=== PATIENT | female | born 1985 | race Caucasian/White ===

== ENCOUNTER 2020-09-26 01:56 | Day surgery (SDC) | payer OTHER, SELFPAY ==
[2020-09-19 10:41] VITALS: BMI 28.2
--- NOTE | 2020-09-25 13:17 | WPDANESEPPF ---
Anes - Initial Pre Proc Eval Procedure: Operation Date: 09/26/20 12:00 Proposed Procedures p Hysteroscopy, Dilation and Curettage, Novasure Ablation - Yanick Dick MD s Laparoscopic Bilateral Tubal Ligation with Fallopian Rings, Nexplanon Removal - Yanick Dick MD Date/Time: 09/25/20 13:17 Surgeon: Yanick Dick MD Pre Op Diagnosis: irregular bleeding, sterilization, nexplanon remov Patient Data Age: 35 Gender: F Height: 1.68 m Weight: 79.38 kg Allergies Allergy/AdvReac Type Severity Reaction Status Date / Time latex Allergy Mild Swelling Unverified 09/19/20 10:39 Penicillins Allergy Unknown RASH Unverified 09/19/20 10:39 Home Medications Medication Instructions Recorded Confirmed Type clonazepam 0.5 mg PO DAILY PRN 09/19/20 09/19/20 History fluoxetine 20 mg PO DAILY 09/19/20 09/19/20 History fluoxetine 40 mg PO DAILY 09/19/20 09/19/20 History linaclotide [Linzess] 290 mcg PO DAILY 09/19/20 09/19/20 History PMF Past Medical History Medical History (Updated 09/25/20 @ 13:18 by Yfn Russell MD) Anxiety Migraine Overweight (BMI 25.0-29.9) Social History Social History Smoking status: Current some day smoker Tobacco type: cigarettes Additional smoking assessment comments: OCCASIONAL SOCIAL SMOKER- UNABLE TO QUANIFY Anes - Eval Final PreProcedure Day of Procedure 09/25/20 13:17 Patient weight: overweight Heart: regular rate and rhythm Lungs: clear to auscultation and normal air movement Airway: Mallampati scale class II Neurological: alert and oriented Last oral intake: >/= 8 hours ASA classification: II Emergent: no Anesthetic plan: proceed Anesthesia type and monitoring: general ETT Informed Consent: The patient's anesthetic plan and its attendant risks and benefits were discussed with the patient/family/POA. Questions were solicited and answers provided to the satisfaction of the patient/family/POA.
[2020-09-26] VITALS (7 sets, daily range): BP systolic 110–124; BP diastolic 63–78; PULSE 62–89; RESP 14–24; TEMP 36.1–36.5; O2SAT 95–100
[2020-09-26] MEDS: ACETAMINOPHEN 500 MG TABLET 1000 MG PO (10:17)
[2020-09-26] MEDS: LACTATED RINGERS 1,000 ML 30 ML IV CONT ×2 (10:21→13:32)
--- NOTE | 2020-09-26 10:27 | WPDANESEPPF ---
Anes - Initial Pre Proc Eval Procedure: Operation Date: 09/26/20 12:00 Proposed Procedures p Hysteroscopy, Dilation and Curettage, Novasure Ablation - Yanick Dick MD s Laparoscopic Bilateral Tubal Ligation with Fallopian Rings, Nexplanon Removal - Yanick Dick MD Date/Time: 09/26/20 10:27 Surgeon: Yanick Dick MD Pre Op Diagnosis: irregular bleeding, sterilization, nexplanon remov Patient Data Age: 35 Gender: F Height: 1.68 m Weight: 79.38 kg Allergies Allergy/AdvReac Type Severity Reaction Status Date / Time latex Allergy Mild Other Unverified 09/26/20 10:13 Penicillins AdvReac Mild RASH/SEVERE Unverified 09/26/20 10:13 HEADACHE Home Medications Medication Instructions Recorded Confirmed Type clonazepam 0.5 mg PO DAILY PRN 09/19/20 09/26/20 History fluoxetine 20 mg PO DAILY 09/19/20 09/26/20 History fluoxetine 40 mg PO DAILY 09/19/20 09/26/20 History linaclotide [Linzess] 290 mcg PO DAILY 09/19/20 09/26/20 History Patient hx anesthesia problems: none Family hx anesthesia problems: none [facility] Past Medical History Medical History (Updated 09/25/20 @ 13:18 by Yfn Russell MD) Anxiety Migraine Overweight (BMI 25.0-29.9) Social History Social History Smoking status: Current some day smoker Tobacco type: cigarettes Additional smoking assessment comments: OCCASIONAL SOCIAL SMOKER- UNABLE TO QUANIFY Anes - Eval Final PreProcedure Day of Procedure 09/26/20 10:27 Patient weight: overweight Heart: regular rate and rhythm Lungs: clear to auscultation and normal air movement Airway: Mallampati scale class II Neurological: alert and oriented Last oral intake: >/= 8 hours ASA classification: II Emergent: no Anesthetic plan: proceed Anesthesia type and monitoring: general ETT and standard monitoring Informed Consent: The patient's anesthetic plan and its attendant risks and benefits were discussed with the patient/family/POA. Questions were solicited and answers provided to the satisfaction of the patient/family/POA.
[2020-09-26] MEDS: KETOROLAC 15 MG/ML VIAL (*BKC) IV PUSH (10:30)
--- NOTE | 2020-09-26 11:41 | SUR.PREOP ---
1135-PT AWARE AND STATES SHE WILL NOTIFY THAT PREVIOUS SURGEON DELAYS DR. PEDRAZA UNTIL 1230.
--- NOTE | 2020-09-26 11:52 | PM.IMHP ---
H&P: HPI History of Present Illness Date/Time: 09/26/20 11:52 Chief complaint: irregular bleeding, sterilization, nexplanon remov Narrative: 35 y/o with a Nexplanon lisa in place. She has irregular, heavy episodes of vaginal bleeding. She is interested in permanent contraception and surgical management of her bleeding. Review of Systems Review of Systems: All systems reviewed & are unremarkable except as noted in HPI and below PMFSH Past Medical History Medical History Anxiety IBS (irritable colon syndrome) Migraine Overweight (BMI 25.0-29.9) Social History Social History Smoking status: Current some day smoker Tobacco type: cigarettes Additional smoking assessment comments: OCCASIONAL SOCIAL SMOKER- UNABLE TO QUANIFY Meds Home Medications and Allergies Home Medications Medication Instructions Recorded Confirmed Type clonazepam 0.5 mg PO DAILY PRN 09/19/20 09/26/20 History fluoxetine 20 mg PO DAILY 09/19/20 09/26/20 History fluoxetine 40 mg PO DAILY 09/19/20 09/26/20 History linaclotide [Linzess] 290 mcg PO DAILY 09/19/20 09/26/20 History Allergies Allergy/AdvReac Type Severity Reaction Status Date / Time latex Allergy Mild Other Unverified 09/26/20 10:13 Penicillins AdvReac Mild RASH/SEVERE Unverified 09/26/20 10:13 HEADACHE Vital Signs Vital Signs - 24 hr 09/26/20 09:54 Temperature 36.5 C Pulse Rate 89 Respiratory Rate 20 Blood Pressure 115/78 Pulse Oximetry 99 Exam Const: Orientation/consciousness: patient oriented x3 Other: Well-developed, well-nourished female in no acute distress. Neck: Thyroid: thyroid normal Lymphatic: no lymphadenopathy noted (in neck, axilla or inguinal nodes) Resp: Effort & Inspection: normal respiratory effort Auscultation: clear to auscultation bilaterally Cardio: Rate: regular rate Rhythm: regular rhythm Heart sounds: S1 normal heart sound present and S2 normal heart sound present GI: Other: ABD: Soft, nontender, nondistended. No guarding or rebound tenderness. No hepatosplenomegaly. : General: Yes no CVA tenderness Other: External genitalia: normal female hair distribution, without lesion. Urethral meatus: no lesion, non prolapsed. Bladder: no mass, nontender Vagina: well-estrogenized, without lesion or discharge. No cystocele or rectocele. Cervix: no lesion or discharge. Uterus: small, anteverted, freely mobile, nontender Adnexa: no mass or tenderness. Anus/perineum: no lesions, nontender Back/Spine/Pelvis: Back: no CVA tenderness Skin: General skin exam: normal color and no rashes or lesions noted Neuro: General: patient oriented x3 Extrem: Other: Extremities: nontender with no edema Psych: Mental Status: mental status grossly normal Affect: normal affect Assessment and Plan Assessment and plan (1) Menometrorrhagia: Code(s): N92.1 - Excessive and frequent menstruation with irregular cycle Status: Acute Assessment and Plan: We reviewed medical vs. surgical management options. She understands there are temporary methods of contraception available to her. She understands that there are nonsurgical options as well as surgical options. She understands that tubal ligation will render her permanently sterile. She understands that there is a failure rate associated with tubal ligation, as well as an inherent ectopic gestation risk. Furthermore, she understands risks of surgery to include risks of anesthesia, risks of pain, infection, bleeding, blood products, thromboembolic phenomena and damage to adjacent structures such as bowel, bladder, ureters, blood vessels and nerves. She understands all these risks and elects to proceed with laparoscopic bilateral tubal ligation, hysteroscopy, D&C, endometrial ablation and removal of Nexplanon lisa. She has received the [employer] pamphlet on surgical steriliza
--- NOTE | 2020-09-26 12:05 | WPDHPUPDATE1 ---
History and Physical Update Update Date/Time: 09/26/20 12:05 History and Physical has been reviewed, including an updated exam of the patient. There are NO changes in the patient's condition. Risks, benefits, and alternatives have been discussed and questions answered. Patient agrees to proceed with procedure.
--- NOTE | 2020-09-26 13:34 | PM.PROC ---
Procedure Note - Detailed Date of procedure: 09/26/20 Pre-op diagnosis: irregular bleeding, sterilization, nexplanon remov Menometrorrhagia Desired sterility Post-op diagnosis: same Procedure performed: Laparoscopic bilateral tubal ligation using Falope rings Hysteroscopy Dilation and sharp curettage Endometrial ablation Removal of Nexplanon contraceptive lisa Description of procedure: The patient was taken to the operating room where general endotracheal anesthesia was administered. She was prepared and draped in the usual sterile fashion in dorsal lithotomy position. The bladder was drained with a red rubber catheter. A sterile speculum was placed into the vagina. The anterior lip of the cervix was grasped with a single-tooth tenaculum. The acorn uterine manipulator was placed. The speculum was withdrawn. Gloves were changed and attention was turned the abdomen. An infraumbilical skin incision was made with a scalpel. The abdomen was tented and a 5mm bladeless trocar was advanced under direct laparoscopic visualization. Pneumoperitoneum was administered using carbon dioxide gas. A survey of the pelvis and abdomen revealed the findings noted above. A second skin incision was made in the midline above the symphysis pubis and an 8mm bladeless trocar was advanced under direct laparoscopic visualization. The fallopian tube on the right side was followed out to the fimbriated end for identification. It was then grasped in the midportion with the Falope ring applicator. The Falope ring was tented applied. A good loop of tube was noted to be distal to the ring. Hemostasis was excellent. The device was reloaded and the contralateral tube was similarly identified and ligated. An excellent application was noted here as well. A total of 3mL of 1% lidocaine was infiltrated into the serosa of the proximal tubes for postoperative anesthesia. The ports were withdrawn. The gas was allowed to escape. The skin incisions were reapproximated using interrupted subcuticular sutures of 4 0 Vicryl. Dermaflex was applied externally. Attention was redirected to the vagina, where the acorn uterine manipulator was withdrawn. Ten mL of 1% lidocaine was administered in a paracervical block. The cervix was then gently dilated using Hegar dilators until an 8 mm dilator could be passed. Hysteroscopy was performed using sterile saline as a distention medium. Findings are as noted above. Sharp curettage was then performed, and endometrial curettings were collected on a Telfa pad and passed off to be sent to pathology. Finally, the the Novasure device was advanced and endometrial ablation commenced without difficulty. The device was withdrawn and a second look was taken using the hysteroscope. Excellent coverage of the endometrial cavity was noted. The tenaculum was removed. Hemostasis was excellent. Finally, the Nexplanon lisa was palpated in the expected location in the left arm. The skin was marked and prepped with betadine and infiltrated with 2 mL of 1% lidocaine. A stab incision was made with the #11 scalpel. The curved hemostat was used to grasp the Nexplanon lisa. It was easily removed, intact, and discarded. Steri strips and a pressure dressing were applied. Sponge, lap, needle and instrument counts were correct. The patient was awakened and taken to the recovery room in stable condition. I was present and scrubbed through the entire procedure. Implants: Falope rings x 2 Anesthesia: GETA and local (1% lidocaine) Surgeon: Yanick Dick MD Estimated blood loss (mL): 10 Drains: No Packing: No Pathology: yes (endometrial curettings) Complications: None Condition: stable Disposition: PACU Findings: Normal-appearing right upper quadrant anatomy, vermiform appendix, ovaries, Fallopian tubes, bilateral round and uterosacral ligaments, anterior and posterior cul-de-sac. Small myoma seen on the serosal surface of the uterine fundus. On hysteroscopy, the endomet
[2020-09-26] MEDS: LIDOCAINE HCL 1% LOCAL INJ 2 ML AMPUL 50 ML INFILTRATE (13:37)
[2020-09-26] MEDS: fentaNYL CITRATE INJ (*CRX) 100 MCG/2 ML VIAL 25 MCG IV PUSH ×4 (13:49→14:15)
--- NOTE | 2020-09-26 13:50 | SUR.PHASEI ---
1345 - dr. ortiz at bedside talking with pt
== END 2020-09-26 15:15 | disposition home or self-care (01) ==
PROVIDERS: PCP Nurse Practitioner Family; Visit Provider Obstetrics & Gynecology
PROC: 0U5B8ZZ Destruction of Endometrium, Via Natural or Artificial Opening Endoscopic (ICD-10-PCS; CPT 58563; principal; 2020-09-26 12:00)
PROC: (CPT 58671; 2020-09-26 12:00)
DX: N92.1 Excessive and frequent menstruation with irregular cycle (principal); Z30.2 Encounter for sterilization; Z30.49 Encounter for surveillance of other contraceptives; D25.9 Leiomyoma of uterus, unspecified; N85.8 Other specified noninflammatory disorders of uterus; F41.9 Anxiety disorder, unspecified; Z72.0 Tobacco use; K58.9 Irritable bowel syndrome, unspecified
CPT/HCPCS: 58671; 58563; 11982; 88305; A4264; A9270; J1100; J1885; J2250; J2405; J2704; J2710; J3010; J7030; J7120

== ENCOUNTER → 2021-03-11 01:21 | Outpatient (CLI) | payer OTHER, SELFPAY ==
[2021-03-11 19:15] LABS: SARS-CoV-2 RNA PCR Negative
== END ==
PROVIDERS: PCP Nurse Practitioner Family; Visit Provider Surgery Plastic and Reconstructive Surgery
DX: Z01.812 Encounter for preprocedural laboratory examination (principal); Z20.822 Contact with and (suspected) exposure to COVID-19
CPT/HCPCS: C9803; U0003; U0005

== ENCOUNTER 2021-03-14 01:04 | Day surgery (SDC) | payer OTHER, SELFPAY ==
[2021-03-05 10:40] VITALS: BMI 29.4
[2021-03-14 10:51] VITALS: BP 99/75; PULSE 73; RESP 18; TEMP 37.2; O2SAT 98
[2021-03-14] MEDS: LACTATED RINGERS 1,000 ML 30 ML IV CONT (11:10)
[2021-03-14] MEDS: SCOPOLAMINE 1.5 MG PATCH TRANSDERM (11:14)
--- NOTE | 2021-03-14 11:40 | WPDANESEPPF ---
Anes - Initial Pre Proc Eval Procedure: Operation Date: 03/14/21 13:30 Proposed Procedures p Bilateral Augmentation Mammoplasty - Todd Moser MD Date/Time: 03/14/21 11:40 Surgeon: Todd Moser MD Pre Op Diagnosis: micromastia Patient Data Age: 35 Gender: F Height: 1.69 m Weight: 79.4 kg Last Vital Signs Temp 37.2 C 03/14/21 10:51 Pulse 73 03/14/21 10:51 Resp 18 03/14/21 10:51 BP 99/75 L 03/14/21 10:51 Pulse Ox 98 03/14/21 10:51 Allergies Allergy/AdvReac Type Severity Reaction Status Date / Time latex Allergy Severe Other Verified 03/14/21 11:24 Penicillins Allergy Severe RASH/SEVERE Verified 03/14/21 11:24 HEADACHE marijuana Allergy Intermediate Swelling Verified 03/14/21 10:56 Home Medications Medication Instructions Recorded Confirmed Type clonazepam 0.5 mg PO DAILY PRN 09/19/20 03/14/21 History linaclotide [Linzess] 290 mcg PO DAILY 09/19/20 03/14/21 History melatonin 10 mg PO HS PRN 03/05/21 03/14/21 History trazodone 50 mg PO HS PRN 03/05/21 03/14/21 History carisoprodol 350 mg tablet 350 mg PO TID PRN #21 tablet 03/06/21 03/14/21 Rx ondansetron HCl 4 mg tablet 4 mg PO Q8H #21 tablet 03/06/21 03/14/21 Rx oxycodone-acetaminophen 5 mg-325 1 tablet PO Q6H PRN #15 tablet 03/06/21 03/14/21 Rx mg tablet Patient hx anesthesia problems: none Family hx anesthesia problems: none PMFSH Past Medical History Medical History Anxiety IBS (irritable colon syndrome) Migraine Overweight (BMI 25.0-29.9) Surgical History Surgical History H/O tubal ligation Family History Family History Mother Diabetes mellitus Father Diabetes mellitus Social History Social History Smoking status: Current some day smoker Tobacco type: cigarettes Additional smoking assessment comments: SOCIALLY - A PACK EVERY 2 MONTHS AT MOST Alcohol intake: current Alcohol use details: SOCIALLY - RARE Substance use: never Substance use type: does not use Living arrangements: with family Spiritual care concerns: No Anes - Eval Final PreProcedure Day of Procedure 03/14/21 11:40 Patient weight: overweight Heart: regular rate and rhythm Lungs: clear to auscultation and normal air movement Airway: Mallampati scale class II Neurological: alert and oriented Last oral intake: >/= 8 hours ASA classification: II Emergent: no Anesthetic plan: proceed Anesthesia type and monitoring: general LMA Informed Consent: The patient's anesthetic plan and its attendant risks and benefits were discussed with the patient/family/POA. Questions were solicited and answers provided to the satisfaction of the patient/family/POA.
--- NOTE | 2021-03-14 12:04 | WPDHPUPDATE1 ---
History and Physical Update Update Date/Time: 03/14/21 12:04 History and Physical has been reviewed, including an updated exam of the patient. There are NO changes in the patient's condition. Risks, benefits, and alternatives have been discussed and questions answered. Patient agrees to proceed with procedure.
--- NOTE | 2021-03-14 12:21 | P.OP_ITS ---
Procedure Note - Detailed Date of procedure: 03/14/21 Pre-op diagnosis: micromastia Post-op diagnosis: same Procedure performed: Bilateral augmentation mammaplasty Description of procedure: She is here today for bilateral breast augmentation. Previously and again today the risks, benefits, alternatives were discussed in extensive detail. I wanted her to be very realistic about the risks involved as well as expectations. We discussed aftercare and what to monitor for. Made sure answered all of her questions to her satisfaction today and consent was obtained. Marked in the preoperative holding area with their verification. The patient was taken to the operating room placed supine on the operating table. Anesthesia was provided by anesthesiology. A surgical time-out was taken. We cleansed the skin and 1% lidocaine and 0.25% Marcaine with epinephrine was used anesthetize as a field block. She was prepped and draped in a standard sterile fashion. Tegaderm nipple Fernandez were placed. A 15 blade used to make an incision along the inframammary fold. Dissection was continued at 45 degree angle until the chest wall as identified. Elevated in a dual plane fashion as outlined below. I incised the pectoralis major along its inferior border and completely released the inferior border leaving the medial border intact. I created a subpectoral pocket in the appropriate dimensions based on our preoperative planning for the implant. I then copiously irrigated with saline solution and verified a strict hemostasis. Next the use a triple antibiotic and Betadine containing solution to irrigate the pocket. I washed my gloves with the triple antibiotic and Betadine solution. We washed the implant immediately upon opening it with this solution and only opened it when we needed it. I used implant funnel and no-touch tam hnique. The implant was introduced into the pocket using the funnel. Having verified positioning of the implant this was closed using 2-0 Vicryl followed by 3-0 Monocryl in a running subcuticular 4-0 Monocryl followed by tissue glue. Fluffs and surgical bra were placed. Patient was awoke and taken to PACU without difficulty. All instrument sponge counts were correct at the end of the case. Anesthesia: GLMA Surgeon: Todd Moser MD Estimated blood loss (mL): 10 Drains: No Packing: No Pathology: none sent Complications: No immediate complications Condition: stable Disposition: PACU Findings: Bilateral Augmentation Mammaplasty Senthil Inspira Soft Touch 560cc Right: Dual plane 1. REF# SSF-560 SN [id number] Left: Dual plane 3. REF# [id number] SN [id number]
[2021-03-14] MEDS: ceFAZolin 2 GM/D5W 50 ML 2 GM/50 ML BAG IVPB (12:36)
[2021-03-14] MEDS: LIDO 1%/EPINEPHRINE 1:100,000 50 ML VIAL INFILTRATE (13:22)
[2021-03-14] MEDS: BUPIVACAINE HCL 0.25% PF 30 ML VIAL INFILTRATE (13:25)
[2021-03-14 13:50] VITALS: BP 132/81; PULSE 89; RESP 18; TEMP 36.1; O2SAT 99
[2021-03-14] MEDS: fentaNYL CITRATE INJ (*CRX) 100 MCG/2 ML VIAL 25 MCG IV PUSH ×3 (13:56→14:08)
[2021-03-14 14:05] VITALS: BP 118/81; PULSE 77; RESP 12; O2SAT 98
[2021-03-14 14:20] VITALS: BP 116/74; PULSE 71; RESP 20; O2SAT 98
[2021-03-14 14:35] VITALS: BP 109/64; PULSE 64; RESP 18
[2021-03-14] MEDS: oxyCODONE HCL (*CRX) 5 MG TAB IR PO (14:48)
[2021-03-14 15:05] VITALS: BP 111/78; PULSE 62; RESP 18
== END 2021-03-14 15:21 | disposition home or self-care (01) ==
PROVIDERS: PCP Nurse Practitioner Family; Visit Provider Surgery Plastic and Reconstructive Surgery
PROC: (CPT 19325; principal; 2021-03-14 13:30)
DX: Z41.1 Encounter for cosmetic surgery (principal); N64.82 Hypoplasia of breast; K58.9 Irritable bowel syndrome, unspecified; F41.9 Anxiety disorder, unspecified; Z79.899 Other long term (current) drug therapy; F17.210 Nicotine dependence, cigarettes, uncomplicated
CPT/HCPCS: 19325; A9270; J0690; J1100; J1200; J1580; J2250; J2405; J2704; J3010; J7120

== ENCOUNTER 2022-11-27 08:49 | Outpatient (CLI) | payer OTHER, SELFPAY | END 2022-11-27 08:50 | disposition home or self-care (01) | LOC: ANHSURGERY 09:25 | PROVIDERS: PCP Nurse Practitioner Family; Visit Provider Obstetrics & Gynecology | DX: N94.6 Dysmenorrhea, unspecified (principal); Z01.818 Encounter for other preprocedural examination | CPT/HCPCS: 36415; 86850; 86900; 86901 ==

== ENCOUNTER 2022-12-03 14:47 | Observation (INO) | payer OTHER, SELFPAY ==
[2022-11-25 11:00] VITALS: BMI 27.1
--- NOTE | 2022-11-25 11:04 | PC.NURSE ---
Report to the Outpatient Waiting Room, entrance under the green pavilion located off [facility], at time 11:00 on date 12/03/22. Planned Procedure Time: 1:00. Time changes happen often and if your time is changed the preop area will call you the afternoon before. - You and your visitor will be asked to self-screen and do not enter if you have any COVID symptoms. - Only one visitor is requested with a max of two and NO children visitors are allowed at this time. - The patient visitor may be requested to leave or wait in car when not with patient due to distancing restrictions. - A mask is optional within the hospital. Patients may have clear liquids (water, carbonated beverages, clear teas, apple juice) until 3 hours prior to surgery (10:00) with a maximum of 20 ounces. - No food from midnight until time of surgery Take the following medications with a SIP of water the morning of surgery: DESVENLAFAXINE, CLONAZEPAM IF NEEDED Medications to discontinue per physician: N/A Date to take last dose: N/A Please no make-up, nail sami, hairspray, perfume, deodorant, or body powder the day of surgery. No jewelry (including any body piercings) or valuables the day of surgery, leave them at home. Please take a shower or bath the night before, or the morning of, surgery with an antibacterial soap. Wear comfortable, loose fitting clothing. - Jewelry must be removed prior to entering the operating room. Rings and piercings that are not removed may be cut off. - The hospital will not accept responsibility for valuables. - Please leave all valuables, including medications, at home the day of surgery. If you are going home after surgery, a licensed race car driver must drive you home. - NO public transportation without another adult if you receive anesthesia. - We recommend that an adult stay with you for 24 hours following discharge. - We also recommend that you do not drive, make important decision, drink alcoholic beverages, or take any drugs that were not prescribed by your health care provider for at least 24 hours after your discharge time. Follow any additional instructions given to you from your surgeon. If you or anyone in your household have experienced Covid symptoms in the past week, please notify your surgeon or the nurse liaison at the phone number below for possible testing. Telephone instructions given to COSMO JULIEN and asked if any additional questions and then verbalized understanding. Patient advised to call surgeon office or pre surgery nurse liaison [phone] if any additional questions.
[2022-12-03] VITALS (8 sets, daily range): BP systolic 101–133; BP diastolic 61–91; PULSE 70–91; RESP 14–20; TEMP 36.4–36.8; O2SAT 96–100
[2022-12-03] MEDS: ACETAMINOPHEN 500 MG TABLET 1000 MG PO (10:22)
[2022-12-03] MEDS: LACTATED RINGERS 1,000 ML 30 ML IV CONT ×2 (10:30→13:28)
--- NOTE | 2022-12-03 10:33 | PM.IMHP ---
H&P: HPI History of Present Illness Date/Time: 12/03/22 10:33 Chief Complaint: Bleeding Narrative: 37 y/o who has had a tubal ligation and an endometrial ablation. She initially had a good response. However, she began to have irregular bleeding that is difficult to predict, as well as intermittent pain. She is interested in definitive management with hysterectomy. Review of Systems Review of Systems: All systems reviewed & are unremarkable except as noted in HPI and below PMFSH Past Medical History Medical History Anxiety IBS (irritable colon syndrome) Migraine Overweight (BMI 25.0-29.9) Surgical History Surgical History H/O tubal ligation History of breast augmentation History of endometrial ablation History of loop electrical excision procedure (LEEP) Family History Family History Mother Diabetes mellitus Father Diabetes mellitus Social History Social History Smoking status: Current some day smoker Tobacco type: cigarettes Additional smoking assessment comments: SOCIAL Alcohol intake: never Alcohol use details: SOCIALLY - RARE Substance use: never Substance use type: does not use Living arrangements: with family Spiritual care concerns: No Meds Home Medications and Allergies Home Medications Medication Instructions Recorded Confirmed Type clonazepam 0.5 mg tablet 0.5 mg PO DAILY PRN Anxiety 09/19/20 11/25/22 History linaclotide 290 mcg capsule 290 mcg PO DAILY 09/19/20 11/25/22 History (Linzess) montelukast 5 mg chewable tablet 5 mg PO DAILY #90 tabs 04/01/22 11/25/22 Rx (Singulair) desvenlafaxine succinate 50 mg 100 mg PO DAILY 11/25/22 11/25/22 History tablet,extended release 24 hr Allergies Allergy/AdvReac Type Severity Reaction Status Date / Time latex Allergy Severe Other Verified 12/03/22 10:33 Penicillins Allergy Severe RASH/SEVERE Verified 12/03/22 10:33 HEADACHE marijuana (cannabis) Allergy Intermediate Swelling Verified 12/03/22 10:33 [marijuana] Exam Const: Orientation/consciousness: patient oriented x3 Other: Well-developed, well-nourished female in no acute distress. Neck: Thyroid: thyroid normal Lymphatic: no lymphadenopathy noted (in neck, axilla or inguinal nodes) Resp: Effort & Inspection: normal respiratory effort Auscultation: clear to auscultation bilaterally Cardio: Rate: regular rate Rhythm: regular rhythm Heart sounds: S1 normal heart sound present and S2 normal heart sound present GI: Other: ABD: Soft, nontender, nondistended. No guarding or rebound tenderness. No hepatosplenomegaly. : General: Yes no CVA tenderness Other: External genitalia: normal female hair distribution, without lesion. Urethral meatus: no lesion, non prolapsed. Bladder: no mass, nontender Vagina: well-estrogenized, without lesion or discharge. No cystocele or rectocele. Cervix: no lesion or discharge. Uterus: small, anteverted, freely mobile, nontender Adnexa: no mass or tenderness. Anus/perineum: no lesions, nontender Back/Spine/Pelvis: Back: no CVA tenderness Skin: General skin exam: normal color and no rashes or lesions noted Neuro: General: patient oriented x3 Extrem: Other: Extremities: nontender with no edema Psych: Mental Status: mental status grossly normal Affect: normal affect Assessment and Plan Assessment and plan (1) Menometrorrhagia: Code(s): N92.1 - Excessive and frequent menstruation with irregular cycle Status: Acute Assessment and Plan: A: Menometrorrhagia with dysmenorrhea, refractory to conservative management. P: She desires definitive management with hysterectomy, as above. I have offered her a total vaginal hysterectomy with bilateral salpingec
[2022-12-03] MEDS: KETOROLAC 15 MG/ML VIAL (*BKC) IV PUSH (10:54)
--- NOTE | 2022-12-03 11:36 | P.PNAN_ITS ---
Anes - Initial Pre Proc Eval Procedure: Operation Date: 12/03/22 12:00 Proposed Procedures p Total Vaginal Hysterectomy with Bilateral Salpingectomy - Yanick Dick MD Date/Time: 12/03/22 11:36 Surgeon: Yanick Dick MD Pre Op Diagnosis: failed ablation, heavy bleeding, dysmenorrhea Patient Data Age: 37 Gender: F Height: 1.7 m Weight: 80.5 kg Last Vital Signs Temp 97.6 F 12/03/22 10:34 Pulse 86 12/03/22 10:34 Resp 16 12/03/22 10:34 BP 101/72 12/03/22 10:34 Pulse Ox 98 12/03/22 10:34 O2 Del Method Room Air 12/03/22 10:34 Allergies Allergy/AdvReac Type Severity Reaction Status Date / Time latex Allergy Severe Other Verified 12/03/22 10:33 Penicillins Allergy Severe RASH/SEVERE Verified 12/03/22 10:33 HEADACHE marijuana (cannabis) Allergy Intermediate Swelling Verified 12/03/22 10:33 [marijuana] Home Medications Medication Instructions Recorded Confirmed Type clonazepam 0.5 mg tablet 0.5 mg PO DAILY PRN Anxiety 09/19/20 12/03/22 History linaclotide 290 mcg capsule 290 mcg PO DAILY 09/19/20 12/03/22 History (Linzess) montelukast 5 mg chewable tablet 5 mg PO DAILY #90 tabs 04/01/22 11/25/22 Rx (Singulair) desvenlafaxine succinate 50 mg 100 mg PO DAILY 11/25/22 12/03/22 History tablet,extended release 24 hr Patient hx anesthesia problems: none Family hx anesthesia problems: none Results Review: All pre-operative results and documents have been reviewed as part of the pre- operative evaluation. [facility] Past Medical History Medical History Anxiety IBS (irritable colon syndrome) Migraine Overweight (BMI 25.0-29.9) Surgical History Surgical History H/O tubal ligation History of breast augmentation History of endometrial ablation History of loop electrical excision procedure (LEEP) Family History Family History Mother Diabetes mellitus Father Diabetes mellitus Social History Social History Smoking status: Current some day smoker Tobacco type: cigarettes Additional smoking assessment comments: SOCIAL Alcohol intake: never Alcohol use details: SOCIALLY - RARE Substance use: never Substance use type: does not use Living arrangements: with family Spiritual care concerns: No Anes - Eval Final PreProcedure Day of Procedure 12/03/22 11:36 Patient weight: normal Heart: regular rate and rhythm Lungs: clear to auscultation Airway: Mallampati scale class II Neurological: alert and oriented Last oral intake: >/= 8 hours ASA classification: II Emergent: no Anesthetic plan: proceed Anesthesia type and monitoring: general GIVS and standard monitoring Results Review: All pre-operative results and documents have been reviewed as part of the pre- operative evaluation. Informed Consent: The patient's anesthetic plan and its attendant risks and benefits were discussed with the patient/family/POA. Questions were solicited and answers provided to the satisfaction of the patient/family/POA.
--- NOTE | 2022-12-03 12:11 | WPDHPUPDATE1 ---
History and Physical Update Update Date/Time: 12/03/22 12:11 History and Physical has been reviewed, including an updated exam of the patient. There are NO changes in the patient's condition. Risks, benefits, and alternatives have been discussed and questions answered. Patient agrees to proceed with procedure.
[2022-12-03] MEDS: ceFAZolin 2 GM/D5W 50 ML 2 GM/50 ML BAG IVPB (12:18)
--- NOTE | 2022-12-03 13:34 | P.OP_ITS ---
Procedure Note - Detailed Date of Procedure 12/03/22 Pre-op Diagnosis Menometrorrhagia Dysmenorrhea Post-op Diagnosis Same Procedure Performed Total vaginal hysterectomy with bilateral salpingectomies Surgeon Yanick Dick MD Anesthesia General Findings Normal-appearing uterus, tubes and ovaries. Description of Procedure The patient was taken to the operating room where she was prepared and draped in the usual sterile fashion in the dorsal lithotomy position. The bladder was drained with red rubber catheter. A weighted speculum was placed posteriorly. A Helene retractor was used anteriorly. The cervix was grasped with a single- tooth tenaculum. Ten mL of sterile saline was infiltrated circumferentially around the cervix to aid in tissue plane dissection. The cervix was circumscribed using electrocautery. The peritoneal cavity was entered sharply posteriorly and a long weighted speculum was placed. The uterosacral and cardinal ligaments on both sides were then clamped, transected and suture ligated using 0 Vicryl. These were tagged for later identification. The bladder was dissected off the cervix and lower uterine segment and reflected away. The LigaSure device was then used to clamp, ligate and transect the broad ligaments bilaterally. Finally, the utero-ovarian ligament, round ligament and tube complexes on both sides were able to be clamped, transected and suture ligated using 0 Vicryl. The specimen was passed off to be sent to pathology. The bilateral fallopian tubes were then dissected, clamped, ligated and transected using the LigaSure device and passed off the field. The pedicles were inspected and found to be hemostatic. The vaginal cuff angles were then transfixed to the ipsilateral cardinal uterosacral ligaments for support. The vaginal cuff was reapproximated using 0 Vicryl in a running, locked fashion. Hemostasis was excellent. A Lujan catheter was placed. Vaginal packing soaked in Premarin cream was placed. Sponge, lap, needle and instrument counts were correct. The patient was awakened and taken to the recovery room in stable condition. I was present and scrubbed for the entire procedure. Implants None Estimated Blood Loss 30 Drains Yes (lujan) Packing Yes (vaginal) Pathology Yes (Uterus, cervix, bilateral Fallopian tubes) Complications None Condition Stable Disposition PACU
--- NOTE | 2022-12-03 13:36 | PM.DS ---
DS: Admitting Diagnosis Discharge Date 12/04/22 Admitting Diagnosis Menometrorrhagia Dysmenorrhea DS: Discharge Diagnosis Discharge Diagnosis (1) Dysmenorrhea: Code(s): N94.6 - Dysmenorrhea, unspecified Status: Acute (2) Menometrorrhagia: Code(s): N92.1 - Excessive and frequent menstruation with irregular cycle Status: Acute DS: Summary Hospital Course Hospital Course: Admitted to the hospital on the date of scheduled surgery. Please see op note. Postoperatively she did well and was able to go home on POD#1. Time Spent with Patient Time attestation: Total time spent providing and/or coordinating discharge services: DS: Data Data Completed and Pending Pending studies at discharge: Pending at discharge 12/03/22 12:56 Surgical [PTH] Routine Discharge Plan Discharge Attending physician on discharge: Yanick Dick Discharging Clinician: Yanick Dick Patient Disposition: Home, Self-Care Activity: may shower, may drive after 2 weeks and pelvic rest Diet: regular Discharge Instructions: Nothing in the vagina for 6 weeks. Call or return if temperature above 100.4? F, increased abdominal pain, increased vaginal bleeding or any new problems. Stand Alone Forms: General Discharge Instructions Follow-up/Referrals: Yanick Dick MD [Physician] - 2 Weeks Discharge Medications: New hydrocodone-acetaminophen 5-325 mg tablet 1 - 2 tablet PO Q6H PRN (Reason: pain) Qty: 30 0RF Continued montelukast [Singulair] 5 mg tablet,chewable 5 mg PO DAILY Qty: 90 0RF clonazepam 0.5 mg tablet 0.5 mg PO DAILY PRN (Reason: Anxiety) Linzess 290 mcg capsule 290 mcg PO DAILY desvenlafaxine succinate 50 mg tablet extended release 24 hr 100 mg PO DAILY Date of admission: 12/03/22 14:47 Primary Care Provider: Jatin,Luanne Admitting Provider: Yanick Dick Attending physician on admission: Yanick Dick Condition: Stable
[2022-12-03] MEDS: fentaNYL CITRATE INJ (*CRX) 100 MCG/2 ML VIAL 25 MCG IV PUSH ×8 (13:45→14:30)
--- NOTE | 2022-12-03 14:50 | PC.NURSE ---
This patient, Martha Falk, was received from PACU on 12/03/22 at 1450. Patient/family oriented to unit policies and routines.
[2022-12-03] MEDS: KETOROLAC 30 MG/ML VIAL (*BKC) IV PUSH ×2 (15:06→21:12)
[2022-12-03] MEDS: DEXTROSE 5%/0.45% SOD CHL 1,000 ML 125 ML IV CONT (15:09)
[2022-12-03] MEDS: HYDROcodone/acetaminophen (*CRX) 10-325 MG TABLET 1 TAB PO (17:07)
[2022-12-03] MEDS: MONTELUKAST SODIUM 5 MG TABLET PO (18:44)
[2022-12-03] MEDS: ENOXAPARIN 40 MG/0.4 ML SYRINGE SUB-Q (18:44)
[2022-12-03] MEDS: ONDANSETRON INJ 4 MG/2 ML VIAL IV PUSH (18:44)
[2022-12-04] MEDS: ONDANSETRON INJ 4 MG/2 ML VIAL IV PUSH (03:08)
[2022-12-04] MEDS: KETOROLAC 30 MG/ML VIAL (*BKC) IV PUSH (03:08)
[2022-12-04 03:20] VITALS: BP 101/66; PULSE 79; RESP 16; TEMP 37.1
[2022-12-04 03:56] LABS: Basophils Percent Auto 0.1 % (0.2-1.2); Hematocrit 33.7 % (37.0-47.0); Hemoglobin 11.6 g/dL (12.0-15.0); Immature Granulocyte Absolute 0.04 K/mm3 (0.00-0.031); Immature Granulocyte Percent A 0.4 % (0-0.5); Lymphocytes Absolute Auto 1.65 K/mm3 (0.9-3.2); Lymphocytes Percent Auto 14.9 % (18.3-44.2); Mean Corpuscular HGB Conc 34.4 g/dl (32-36); Mean Corpuscular Hemoglobin 30.9 pg (26-34); Mean Corpuscular Volume 89.6 fl (80-100); Mean Platelet Volume 9.9 fl (7.4-10.4); Monocytes Absolute Auto 0.7 K/mm3 (0.1-0.6); Monocytes Percent Auto 6.3 % (2.6-8.5); Neutrophils Absolute Auto 8.6 K/mm3 (1.3-6.7); Neutrophils Percent Auto 78.3 % (45.5-73.1); Platelet Count Result 282 k/mm3 (150-375); Red Blood Count 3.76 M/mm3 (4.2-5.4); Red Cell Distribution Width 11.9 % (11.5-14.5)
[2022-12-04 07:45] VITALS: BP 113/79; PULSE 86; RESP 16; TEMP 37.4; O2SAT 98
--- NOTE | 2022-12-04 07:52 | WPDANESPN ---
Anes - Prog Note Post-Op Date/Time: 12/04/22 07:52 Cardiovascular status: normal Respiratory status: normal Airway patency: baseline Mental status: baseline Post-Op hydration status: normal Vital Signs: Last Vital Signs Temp 37.1 C 12/04/22 03:20 Pulse 79 12/04/22 03:20 Resp 16 12/04/22 03:20 BP 101/66 12/04/22 03:20 Pulse Ox 96 12/03/22 15:00 O2 Del Method Room Air 12/03/22 14:45 O2 Flow Rate 6 12/03/22 13:55 Pain Score (VAS): 01/16 I/O: Intake & Output 12/03/22 12/03/22 12/04/22 15:59 23:59 07:59 Intake Total 400 1045 1000 Output Total 50 575 700 Balance 350 470 300 Laboratory Tests 12/04/22 03:39 12/04/22 03:39 WBC 11.0 H RBC 3.76 L Hgb 11.6 L Hct 33.7 L MCV 89.6 MCH 30.9 MCHC 34.4 RDW 11.9 Plt Count 282 MPV 9.9 Immature Gran % (Auto) 0.4 Neut % (Auto) 78.3 H Lymph % (Auto) 14.9 L [place] % (Auto) 6.3 Eos % (Auto) 0.0 Baso % (Auto) 0.1 L Lymph # (Auto) 1.65 [place] # (Auto) 0.7 H Eos # (Auto) 0.0 Baso # (Auto) 0.0 Abs Immat Gran (auto) 0.04 H Absolute Neuts (auto) 8.6 H Absolute Nucleated RBC 0.0 Nucleated RBC % 0.0 Post-procedural complaints: none Patient Feedback: Patient satisfied with anesthetic care. Other Findings: Patient states mild nausea last night, but is resolved this morning
[2022-12-04] MEDS: DOCUSATE SODIUM 100 MG CAPSULE PO (08:10)
--- NOTE | 2022-12-04 08:51 | PM.GYNPNOP ---
[employer] - A/P Assessment and plan (1) Dysmenorrhea: Code(s): N94.6 - Dysmenorrhea, unspecified Status: Acute Assessment and Plan: A: POD#1, doing well. P: Home to f/u 2 weeks in office. (2) Menometrorrhagia: Code(s): N92.1 - Excessive and frequent menstruation with irregular cycle Status: Acute Postoperative Procedures: Procedures Operation Date: 12/03/22 12:00 Actual Procedure Side Surgeon p Total Vaginal Hysterectomy with Bilateral Salpingectomy Not Applicable Yanick Dick MD Time Spent With Patient Time: Total time spent is greater than 50% in coordination of care (as documented) at patient's floor/unit and/or counseling patient: Time with patient: less than 15 minutes [employer]- PN:Subj Post-Op Subjective Date/time seen: 12/04/22 08:51 Interval history: Pain OK. Tolerating diet. Voiding. Would like to go home. Exam Narrative: AVSS I/O OK ABD soft, nontender. Incisions c/d/i. EXT nontender [employer] - PN: Obj Data Vital Signs Vital Signs: Vital Signs - 24 hr 12/03/22 10:34 12/03/22 13:28 12/03/22 13:40 Temperature 36.4 C 36.8 C Pulse Rate 86 80 91 Respiratory Rate 16 14 16 Blood Pressure 101/72 109/72 119/80 Pulse Oximetry 98 97 97 Oxygen Delivery Room Air Simple Face Mask Simple Face Mask Oxygen Flow Rate 10 6 12/03/22 13:55 12/03/22 14:10 12/03/22 14:45 Temperature Pulse Rate 88 74 70 Respiratory Rate 20 20 20 Blood Pressure 128/86 133/91 H 128/75 Pulse Oximetry 100 100 100 Oxygen Delivery Simple Face Mask Room Air Room Air Oxygen Flow Rate 6 12/03/22 15:00 12/03/22 18:55 12/04/22 03:20 Temperature 36.5 C 36.4 C 37.1 C Pulse Rate 79 70 79 Respiratory Rate 16 16 16 Blood Pressure 122/77 102/61 101/66 Pulse Oximetry 96 Oxygen Delivery Oxygen Flow Rate 12/04/22 07:45 Temperature 37.4 C Pulse Rate 86 Respiratory Rate 16 Blood Pressure 113/79 Pulse Oximetry 98 Oxygen Delivery Oxygen Flow Rate Intake/Output Intake/Output: Intake & Output 12/01/22 12/02/22 12/03/22 12/04/22 23:59 23:59 23:59 23:59 Intake Total 1445 1000 Output Total 625 700 Balance 820 300 Meds/Results Medications: Active Medications Generic Name Dose Route Start Last Admin Trade Name Freq PRN Reason Stop Dose Admin Hydrocodone Bitart/Acetaminophen 1 tab 12/03/22 14:47 Hydrocodone/Acetaminophen (*Crx) 5-325 Mg Tablet PO Q3H PRN Pain Rated 5 or Less Hydrocodone Bitart/Acetaminophen 1 tab 12/03/22 14:47 12/03/22 17:07 Hydrocodone/Acetaminophen (*Crx) 10-325 Mg Tablet PO 1 tab Q3H PRN Administration Pain Rated 6 or Greater Clonazepam 0.5 mg 12/03/22 14:47 Clonazepam (*Crx) 0.5 Mg Tablet PO DAILY PRN Anxiety Desvenlafaxine Succinate 100 mg 12/04/22 09:00 12/04/22 08:26 Desvenlafaxine Succinate 50 Mg Tab.Er.24h PO Not Given QAM [facility] Docusate Sodium 100 mg 12/03/22 17:00 12/04/22 08:10 Docusate Sodium 100 Mg Capsule PO 100 mg BID [facility] Administration Enoxaparin Sodium 40 mg 12/03/22 21:00 12/03/22 18:44 Enoxaparin 40 Mg/0.4 Ml Syringe SUB-Q 40 mg DAILY@2100 [facility] Administration Ibuprofen 600 mg 12/03/22 14:47 Ibuprofen 600 Mg Tablet PO Q6H PRN Cramping Ketorolac Tromethamine 30 mg 12/03/22 14:47 12/04/22 03:08 Ketorolac 30 Mg/Ml Vial (*Bkc) IV PUSH 12/08/22 14:46 30 mg Q6H PRN Administration Pain Rated 4-6 Linaclotide 290 mcg 12/04/22 06:30 12/04/22 08:26 Linaclotide 145 Mcg Capsule PO Not Given DAILY@0630 [facility] Montelukast Sodium 5 mg 12/03/22 18:00 12/03/22 18:44 Montelukast Sodium 5 Mg Tablet PO 5 mg QPM [facility] Administration Morphine Sulfate 4 mg 12/03/22 14:47 Morphine Sulfate (*Crx) 4 Mg/Ml Inj IV PUSH Q4H PRN Severe breakthrough pain Naloxone HCl 0.1 mg 12/03/22 14:47 Naloxone Hcl 0.4 Mg/Ml Vial IV PUSH Q2M PRN Respiratory rate less than 10 Ondansetron HCl 4
[2022-12-04] MEDS: HYDROcodone/acetaminophen (*CRX) 5-325 MG TABLET 1 TAB PO (09:27)
== END 2022-12-04 09:45 | disposition home or self-care (01) ==
LOC: ANHOB2 14:51
PROVIDERS: Admitting Provider Obstetrics & Gynecology; PCP Nurse Practitioner Family; Visit Provider Obstetrics & Gynecology
PROC: (CPT 58260; principal; 2022-12-03 12:00)
DX: N72 Inflammatory disease of cervix uteri (principal); N88.8 Other specified noninflammatory disorders of cervix uteri; D25.1 Intramural leiomyoma of uterus; D25.2 Subserosal leiomyoma of uterus; N94.6 Dysmenorrhea, unspecified; N92.1 Excessive and frequent menstruation with irregular cycle; Z72.0 Tobacco use
CPT/HCPCS: 58262; 36415; 85025; 86850; 86900; 86901; 88307; 96372; 96374; A9270; G0378; G0379; J0690; J1100; J1170; J1650; J1885; J2250; J2405; J2704; J3010; J7030; J7120